=== PATIENT | male | born 1945 ===

== ENCOUNTER 2019-01-21 10:52 | Emergency (ER) | payer OTHER, SELFPAY ==
[2019-01-21 11:22] LABS: Absolute Lymphocytes (CBC) 0.8 K/uL (0.7-4.9); Absolute Monocytes 0.5 K/uL (0.1-1.3); Absolute Neutrophil 3.3 K/uL (1.8-8.0); Basophils % 0.4 % (0-1.3); Hematocrit 37.2 % (39.6-49.0); MPV 9.1 fL (7.6-11.3); Monocytes % 10.8 % (3.3-12.3); RBC Red Blood Cell Count 3.76 M/uL (4.33-5.43)
[2019-01-21 11:25] LABS: Protime INR 1.36
[2019-01-21 11:40] LABS: ALT/SGPT 8 U/L (12-78); AST/SGOT 7 U/L (15-37); Albumin 2.9 g/dL (3.4-5.0); Alkaline Phosphatase 67 U/L (45-117); BUN Blood Urea Nitrogen 20 mg/dL (7-18); Bicarbonate 30 mmol/L (21-32); Bilirubin Direct 0.2 mg/dL (0-0.2); Bilirubin Total 0.4 mg/dL (0.2-1.0); Glucose Level 83 mg/dL (74-106); Magnesium 2.2 mg/dL (1.8-2.4); NT PRO-BNP 626 pg/mL (<125); Potassium 4.1 mmol/L (3.5-5.1); Protein, Total 6.5 g/dL (6.4-8.2); Sodium Level 147 mmol/L (136-145); Troponin (Emerg Dept Use Only) < 0.02 ng/mL (0.0-0.045)
--- NOTE | 2019-01-21 12:05 | RAD REPORT ---
EXAM DESCRIPTION: CT - CTHCSPWOC - 01/21/2019 11:36 am CLINICAL HISTORY: Fall, head and neck injury COMPARISON: None. TECHNIQUE: Axial 5 mm thick images of the head were obtained. Axial 2 mm thick images of the cervic al spine were obtained with sagittal and coronal reconstruction images generated and reviewed. All CT scans are performed using dose optimization technique as appropriate and may include automated exposure control or mA/KV adjustment according to patient size. FINDINGS: No intracranial hemorrhage, mass, edema or acute intracranial finding. No cortical edema o r sulcal effacement. An acute cortical based infarction is not identifiable. Patient has prominent at rophy and prominent chronic ischemic change. Ventricles are in proportion to the amount of volume los s. Mastoid air cells and paranasal sinuses are clear. No globe or orbit abnormality seen. Cervical bodies are normal in height. There is a mild subluxation of C4 on C5 secondary to facet dege nerative change. C5-6 and C6-7 disc space narrowing present. No fracture or acute finding identifiabl e. Prominent facet degenerative change on the right at C2-3 with mild foraminal encroachment. There i s significant right foraminal encroachment from bony hypertrophy at C3-4 and bilaterally at C4-5. Brigitte y significant left C5-6 and bilateral C6-7 foraminal encroachment. No fracture or acute bony abnormal ity. Central canal detail is inherently limited. No paraspinal mass or hematoma. IMPRESSION: Prominent atrophy and chronic ischemic change with no hemorrhage or acute intracranial f inding. Chronic ischemic change can mask nonhemorrhagic acute CVA. Advanced cervical spine degenerative change as detailed. No acute findings seen.
[2019-01-21] MEDS ORDERED: THIAMINE 200 MG/2 ML INJ ONE (12:25)
[2019-01-21] MEDS ORDERED: NA CHLORIDE 0.9% 1,000 ML ONE (12:25)
[2019-01-21] MEDS ORDERED: TETANUS & DIPHTHERIA TOX,ADULT 0.5 ML VIAL ONE (12:26)
[2019-01-21 12:33] LABS: Urine Blood NEGATIVE (NEG); Urine Glucose NEGATIVE (NEG); Urine Protein NEGATIVE (NEG); Urine Specific Gravity 1.015 (1.005-1.030); Urine pH 7.5 (5.0-7.0)
--- NOTE | 2019-01-21 12:48 | RAD REPORT ---
EXAM DESCRIPTION: RAD - Chest Single View - 01/21/2019 12:09 pm CLINICAL HISTORY: Cough COMPARISON: None. TECHNIQUE: AP portable chest image was obtained 1143 hours . FINDINGS: No focal lung parenchymal process. Mild fibrotic stranding is present. Heart and vasculatu re are normal. No measurable pleural effusion and no pneumothorax. No acute bony abnormality seen. No acute aortic findings suspected. IMPRESSION: No acute cardiopulmonary process.
--- NOTE | 2019-01-21 13:15 | EDPHYS ---
Physician Documentation [facility] Name: Andres Schultz Age: 73 yrs Sex: Male : 1945 Arrival Date: 01/21/2019 Time: 10:53 Bed 5 Private MD: ED Physician Chong Panda HPI: 01/21 11:16 This 73 yrs old Male presents to ER via EMS with complaints of Head jerrod Injury-Adult. 11:16 The patient or guardian reports abrasion, injury, a laceration, 2.5 cm(s). The jerrod complaints affect the right eye and right cheek. Context of injury: The problem was sustained at a bar or nightclub, at a prison or assisted living facility. Onset: The symptoms/episode began/occurred this morning. Associated signs and symptoms: The patient has no apparent associated signs or symptoms. Severity of symptoms: At their worst the symptoms were mild, in the emergency department the symptoms are unchanged. The patient has not experienced similar symptoms in the past. Historical: - Home Meds: 11:03 Protonix Oral [Active]; valproic acid 250 mg Oral cap 2 caps every 8 hours [Active]; ch Seroquel 200 mg Oral tab 1 tab three times a day [Active]; lactulose Oral for prn constipation [Active]; Senokot 8.6 mg Oral tab 2 tabs once daily [Active]; Dulcolax (bisacodyl) 5 mg Oral TbEC 2 tabs once daily [Active]; Zyprexa Oral [Active]; Haldol Oral [Active]; Depakote Oral [Active]; - PMHx: 11:03 COPD; Dementia; Hypertension; psychosis; hx of etoh abuse; Alzheimers; vitamin D def; ch Bipolar disorder; GERD; pain; thrombocytopenia; fall risk/ pt wanders; edema legs; - PSHx: 11:03 Unable to obtain; ch - Immunization history:: Adult Immunizations up to date. - Social history:: Smoking status: Patient/guardian denies using tobacco, Patient/guardian denies using alcohol, street drugs. - Ebola Screening: : Patient negative for fever greater than or equal to 101.5 degrees Fahrenheit, and additional compatible Ebola Virus Disease symptoms Patient denies exposure to infectious person Patient denies travel to an Ebola-affected area in the 21 days before illness onset No symptoms or risks identified at this time. - Family history:: not pertinent. ROS: 11:16 Constitutional: Negative for fever, chills, and weight loss, Eyes: Negative for injury, jerrod pain, redness, and discharge, ENT: Negative for injury, pain, and discharge, Neck: Negative for injury, pain, and swelling, Cardiovascular: Negative for chest pain, palpitations, and edema, Respiratory: Negative for shortness of breath, cough, wheezing, and pleuritic chest pain, Abdomen/GI: Negative for abdominal pain, nausea, vomiting, diarrhea, and constipation, Back: Negative for injury and pain, : Negative for injury, bleeding, discharge, and swelling, MS/Extremity: Negative for injury and deformity, Psych: Negative for depression, anxiety, suicide ideation, homicidal ideation, and hallucinations, Allergy/Immunology: Negative for hives, rash, and allergies, Endocrine: Negative for neck swelling, polydipsia, polyuria, polyphagia, and marked weight changes. 11:16 Skin: Positive for abrasion(s), laceration(s), of the right cheek and right eye. 11:16 Neuro: Positive for altered mental status, dementia. Exam: 11:16 Constitutional: This is a well developed, well nourished patient who is awake, alert, jerrod and in no acute distress. Eyes: Pupils equal round and reactive to light, extra-ocular motions intact. Lids and lashes normal. Conjunctiva and sclera are non-icteric and not injected. Cornea within normal limits. Periorbital areas with no swelling, redness, or edema. ENT: Nares patent. No nasal discharge, no septal abnormalities noted. Tympanic membranes are normal and external auditory canals are clear. Oropharynx with no redness, swelling, or masses, exudates, or evidence of obstruction, uvula midline. Mucous membranes moist. Neck: Trachea midline, no thyromegaly or masses palpated, and no cervical lymphadenopathy. Supple, full range of motion without nuchal rigidity, or vertebral point tenderness. No Meningismus. Chest/axilla: Normal chest wall appearance and motion. Nontender with no deformity. No lesions are appreciated. Cardiovascular: Regular rate and rhythm with a normal S1 and S2. No gallops, murmurs, or rubs. Normal PMI, no JVD. No pulse deficits. Respiratory: Lungs have equal breath sounds bilaterally, clear to auscultation and percussion. No rales, rhonchi or wheezes noted. No increased work of breathing, no retractions or nasal flaring. Abdomen/GI: Soft, non-tender, with normal bowel sounds. No distension or tympany. No guarding or rebound. No evidence of tenderness throughout. Back: No spinal tenderness. No costovertebral tenderness. Full range of motion. Skin: Warm, dry with normal turgor. Normal color with no rashes, no lesions, and no evidence of cellulitis. MS/ Extremity: Pulses equal, no cyanosis. Neurovascular intact. Full, normal range of motion. Neuro: Awake and alert, GCS 15, oriented to person, place, time, and situation. Cranial nerves II-XII grossly intact. Motor strength 5/5 in all extremities. Sensory grossly intact. Cerebellar exam normal. Normal gait. Psych: Awake, alert, with orientation to person, place and time. Behavior, mood, and affect are within normal limits. 11:16 Head/face: Noted is a laceration(s), that is superficial, that is jagged, 2.5 cm(s). Vital Signs: 11:03 BP 159 / 95; Pulse 84; Resp 16; Pulse Ox 99% on R/A; Weight 81.65 kg; Height 5 ft. 10 in. (177.80 cm); Pain 0/10; 12:30 BP 166 / 93; Pulse 73; Resp 21; Pulse Ox 97% on R/A; aj1 13:34 BP 160 / 93; Pulse 73; Resp 16; Pulse Ox 99% ; sv 11:03 Body Mass Index 25.83 (81.65 kg, 177.80 cm) 11:03 height and weight approximated Ravia Coma Score: 10:53 Eye Response: spontaneous(4). Verbal Response: confused(4). Motor Response: obeys commands(6). Total: 14. 11:16 Eye Response: spontaneous(4). Verbal Response: confused(4). Motor Response: localizes [facility] pain(5). Total: 13. MDM: 10:56 Patient medically screened. [facility] 11:18 Data reviewed: vital signs, nurses notes, lab test result(s), EKG, radiologic studies. [facility] 01/21 11:06 Order name: Basic Metabolic Panel; Complete Time: 13:11 [facility] 01/21 11:06 Order name: CBC with Diff; Complete Time: 11:29 [facility] 01/21 11:06 Order name: LFT's; Complete Time: 13:11 [facility] 01/21 11:06 Order name: Magnesium; Complete Time: 13:11 [facility] 01/21 11:06 Order name: NT PRO-BNP; Complete Time: 13:11 [facility] 01/21 11:06 Order name: PT-INR; Complete Time: 11:29 [facility] 01/21 11:06 Order name: Troponin (emerg Dept Use Only); Complete Time: 13:11 [facility] 01/21 11:06 Order name: XRAY Chest (1 view); Complete Time: 13:11 [facility] 01/21 11:06 Order name: Urine Culture [facility] 01/21 11:06 Order name: CT Head C Spine; Complete Time: 13:11 [facility] 01/21 12:28 Order name: Urine Dipstick--Ancillary (enter results); Complete Time: 13:11 01/21 13:16 Order name: Depakote [facility] 01/21 11:06 Order name: EKG; Complete Time: 11:07 [facility] 01/21 11:06 Order name: Cardiac monitoring; Complete Time: 11: [facility] 01/21 11:06 Order name: EKG - Nurse/Tech; Complete Time: 11: [facility] 01/21 11:06 Order name: IV Saline Lock; Complete Time: 11:32 [facility] 01/21 11:06 Order name: Labs collected and sent; Complete Time: 11:32 [facility] 01/21 11:06 Order name: O2 Per Protocol; Complete Time: 11: [facility] 01/21 11:06 Order name: O2 Sat Monitoring; Complete Time: 11: [facility] 01/21 11:06 Order name: Urine Dipstick-Ancillary (obtain specimen); Complete Time: 12:31 [facility] 01/21 11:06 Order name: Ice pack; Complete Time: 11:32 [facility] Administered Medications: 12:39 Drug: NS 0.9% 1000 ml Route: IV; Rate: 125 ml/hr; Site: right forearm; 12:41 Drug: Tetanus-Diphtheria Toxoid Adult 0.5 ml {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 Exp: aj1 12/29/2020. Lot #: [id number]. } Route: IM; Site: right deltoid; 12:41 Drug: Neosporin Ointment 1 application Route: Topical; Site: affected area; aj1 12:41 Drug: Thiamine 100 mg Route: IV; Rate: bolus; Site: right antecubital; aj1 Disposition: 01/21/19 13:14 Discharged to Home. Impression: Laceration without foreign body of other part of head - head, Fall due to bumping against object, Dementia in other diseases classified elsewhere. - Condition is Stable. - Discharge Instructions: Dementia, Fall Prevention in the Home, Facial Laceration, Facial Laceration, [id number], Fall Prevention in the Home, Wrmz-js-[id number], Fall Prevention in Hospitals, Adult, Dementia, Puwe-in-Pxyi. - Medication Reconciliation Form, Thank You Letter, Antibiotic Education, Prescription Opioid Use form. - Follow up: Private Physician; When: 2 - 3 days; Reason: Recheck today's complaints, Continuance of care, Re-evaluation by your physician. - Problem is new. - Symptoms have improved. Signatures: Dispatcher [employer] EDMariama Mcdaniels RN RN ch Johnson, Angela, RN RN aj1 Chong Panda MD MD cha Corrections: (The following items were deleted from the chart) 14:50 13:14 01/21/2019 13:14 Discharged to Home. Impression: Laceration without foreign body aj1 of other part of head - head; Fall due to bumping against object; Dementia in other diseases classified elsewhere. Condition is Stable. Discharge Instructions: Dementia, Facial Laceration, Facial Laceration, Rgff-[id number]-Vgdr, Dementia, [id number]-[id number], Fall Prevention in the Home, Fall Prevention in the Home, Gcgf-[id number], Fall Prevention in Hospitals, Adult. Forms are Medication Reconciliation Form, Thank You Letter, Antibiotic Education, Prescription Opioid Use. Follow up: Private Physician; When: 2 - 3 days; Reason: Recheck today's complaints, Continuance of care, Re-evaluation by your physician. Problem is new. Symptoms have improved. jerrod
--- NOTE | 2019-01-21 13:15 | ER ---
Nurse's Notes [facility] Name: Andres Schultz Age: 73 yrs Sex: Male : 1945 Arrival Date: 01/21/2019 Time: 10:53 Bed 5 Private MD: Diagnosis: Laceration without foreign body of other part of head-head;Fall due to bumping against object;Dementia in other diseases classified elsewhere Presentation: 01/21 10:53 Presenting complaint: EMS states: Pt from [facility], pt found in bed with 3 cm lac ch to R side of face, cheekbone. brusing noted to area. unknown time of fall or LOC. Transition of care: patient was received from another setting of care (long-term care facility), [facility]. Mechanism of Injury: resulted from unknown suspected fall. Onset of symptoms was January 21, 2019. Risk Assessment: Do you want to hurt yourself or someone else? Unable to obtain. Initial Sepsis Screen: Does the patient meet any 2 criteria? No. Patient's initial sepsis screen is negative. Does the patient have a suspected source of infection? No. Patient's initial sepsis screen is negative. Care prior to arrival: 89 bgl. 10:53 Method Of Arrival: EMS: [facility] 10:53 Acuity: IZABELA 3 ch Triage Assessment: 11:03 General: Appears in no apparent distress. comfortable, Behavior is calm, cooperative, ch appropriate for age. Pain: Denies pain. Neuro: Level of Consciousness is awake, alert, obeys commands, confused, Oriented to person, Rn Lvn are equal bilaterally Speech is normal, Facial symmetry appears normal, Facial symmetry: tongue is midline, Pupils are PERRLA, pt has laceration to R cheek/cheek bone, with bruising under eye. . 14:00 Neuro: Reports. aj1 Historical: - Home Meds: 11:03 Protonix Oral [Active]; valproic acid 250 mg Oral cap 2 caps every 8 hours [Active]; ch Seroquel 200 mg Oral tab 1 tab three times a day [Active]; lactulose Oral for prn constipation [Active]; Senokot 8.6 mg Oral tab 2 tabs once daily [Active]; Dulcolax (bisacodyl) 5 mg Oral TbEC 2 tabs once daily [Active]; Zyprexa Oral [Active]; Haldol Oral [Active]; Depakote Oral [Active]; - PMHx: 11:03 COPD; Dementia; Hypertension; psychosis; hx of etoh abuse; Alzheimers; vitamin D def; ch Bipolar disorder; GERD; pain; thrombocytopenia; fall risk/ pt wanders; edema legs; - PSHx: 11:03 Unable to obtain; - Immunization history:: Adult Immunizations up to date. - Social history:: Smoking status: Patient/guardian denies using tobacco, Patient/guardian denies using alcohol, street drugs. - Ebola Screening: : Patient negative for fever greater than or equal to 101.5 degrees Fahrenheit, and additional compatible Ebola Virus Disease symptoms Patient denies exposure to infectious person Patient denies travel to an Ebola-affected area in the 21 days before illness onset No symptoms or risks identified at this time. - Family history:: not pertinent. Screenin:30 Abuse screen: Denies threats or abuse. Denies injuries from another. Nutritional aj1 screening: No deficits noted. Tuberculosis screening: No symptoms or risk factors identified. 13:59 Fall Risk Fall in past 12 months (25 points). Secondary diagnosis (15 points) aj1 Alzheimer's, dementia, No IV (0 pts). Ambulatory Aid- None/Bed Rest/Nurse Assist (0 pts). Gait- Normal/Bed Rest/Wheelchair (0 pts) Mental Status- Overestimates/Forgets Limitations (15 pts.). Total Pulido Fall Scale indicates High Risk Score (45 or more points). Frequent Obs/Assessments Occuring. Assessment: 11:30 General: Appears in no apparent distress. comfortable, Behavior is calm, cooperative, aj1 appropriate for age. Pain: Denies pain. Neuro: Level of Consciousness is awake, alert, obeys commands, Oriented to person, Rn Lvn are equal bilaterally Moves all extremities. Full function Speech is normal. Cardiovascular: Heart tones S1 S2 present Patient's skin is warm and dry. Rhythm is sinus rhythm. Respiratory: Airway is patent Respiratory effort is even, unlabored, Respiratory pattern is regular, symmetrical. GI: No signs and/or symptoms were reported involving the gastrointestinal system. : No signs and/or symptoms were reported regarding the genitourinary system. EENT: No signs and/or symptoms were reported regarding the EENT system. Derm: Skin is pink, warm \T\ dry. Musculoskeletal: No signs and/or symptoms reported regarding the musculoskeletal system. Circulation, motion, and sensation intact. Injury Description: Laceration sustained to right [facility] is 2.6 to 7.5 cm long, a small amount of bleeding noted at this time. 12:30 Reassessment: Patient appears in no apparent distress at this time. No changes from aj1 previously documented assessment. Patient and/or family updated on plan of care and expected duration. Pain level reassessed. 13:30 Reassessment: Patient appears in no apparent distress at this time. No changes from aj1 previously documented assessment. Patient and/or family updated on plan of care and expected duration. Pain level reassessed. Vital Signs: 11:03 BP 159 / 95; Pulse 84; Resp 16; Pulse Ox 99% on R/A; Weight 81.65 kg; Height 5 ft. 10 ch in. (177.80 cm); Pain 0/10; 12:30 BP 166 / 93; Pulse 73; Resp 21; Pulse Ox 97% on R/A; aj1 13:34 BP 160 / 93; Pulse 73; Resp 16; Pulse Ox 99% ; sv 11:03 Body Mass Index 25.83 (81.65 kg, 177.80 cm) 11:03 height and weight approximated Silvia Coma Score: 10:53 Eye Response: spontaneous(4). Verbal Response: confused(4). Motor Response: obeys commands(6). Total: 14. 11:16 Eye Response: spontaneous(4). Verbal Response: confused(4). Motor Response: localizes [facility] pain(5). Total: 13. ED Course: 10:53 Patient arrived in ED. 10:55 Triage completed. 10:56 Chong Panda MD is Attending Physician. [facility] 11:03 Arm band placed on left wrist. Patient placed in an exam room, on a stretcher, on air sampling and monitoring, on pulse oximetry. 11:08 Natalee Webster, RN is Primary Nurse. aj1 11:30 Patient has correct armband on for positive identification. Placed in gown. Bed in low aj1 position. Call light in reach. Side rails up X2. air sampling and monitoring on. Pulse ox on. NIBP on. 11:30 No provider procedures requiring assistance completed. Inserted saline lock: 22 gauge aj1 in right forearm, using aseptic technique. Blood collected. 11:37 CT Head C Spine In Process Unspecified. EDMS 12:09 XRAY Chest (1 view) In Process Unspecified. EDMS 14:08 IV discontinued, intact, bleeding controlled, No redness/swelling at site. Pressure aj1 dressing applied. Administered Medications: 12:39 Drug: NS 0.9% 1000 ml Route: IV; Rate: 125 ml/hr; Site: right forearm; aj1 12:41 Drug: Tetanus-Diphtheria Toxoid Adult 0.5 ml {[employer] Bacon: Departing. Exp: aj1 12/29/2020. Lot #: [id number]. } Route: IM; Site: right deltoid; 12:41 Drug: Neosporin Ointment 1 application Route: Topical; Site: affected area; aj1 12:41 Drug: Thiamine 100 mg Route: IV; Rate: bolus; Site: right antecubital; aj1 Outcome: 13:14 Discharge ordered by MD. elder 13:59 Discharged to retirement. Report called to [facility] to [facility] Transfer form sv completed. 13:59 Condition: stable 13:59 Discharge instructions given to retirement, Instructed on discharge instructions, follow up and referral plans. Demonstrated understanding of instructions, follow-up care. 14:50 Patient left the ED. aj1 Signatures: Dispatcher [employer] Mariama Falcon, RN RN Natalee Conteh RN RN aj1 Monik Lopez, Chong Farrell RN, MD MD cha Corrections: (The following items were deleted from the chart) 13:59 12:30 Reassessment: Patient appears in no apparent distress at this time. No changes aj1 from previously documented assessment. Patient and/or family updated on plan of care and expected duration. Pain level reassessed. Patient is alert, oriented x 3, equal unlabored respirations, skin warm/dry/pink. aj1
--- NOTE | 2019-01-22 05:56 | EKG ---
Test Date: 2019-01-21 Test Time: 11:04:40 Chain Dyer: MEASUREMENT RESULTS: Intervals: Rate: 74 NH: 148 QRSD: 92 QT: 392 QTc: 435 [place]: P: 69 NH: 148 QRS: 80 T: 71 INTERPRETIVE STATEMENTS: Normal sinus rhythm Normal ECG No previous ECG available for comparison Electronically Signed On 01-22-19 05:54:53 CDT by Tahir Granado
== END 2019-01-21 14:50 | disposition home or self-care (01) ==
LOC: ER 10:52
DX: S01.81XA Laceration without foreign body of other part of head, initial encounter (principal); G30.9 Alzheimer's disease, unspecified; F02.80 Dementia in other diseases classified elsewhere, unspecified severity, without behavioral disturbance, psychotic disturbance, mood disturbance, and anxiety; W18.00XA Striking against unspecified object with subsequent fall, initial encounter; Y93.9 Activity, unspecified; Y92.89 Other specified places as the place of occurrence of the external cause; Z23 Encounter for immunization; I10 Essential (primary) hypertension; J44.9 Chronic obstructive pulmonary disease, unspecified; F31.9 Bipolar disorder, unspecified
CPT/HCPCS: 93005; 87088; 85025; 80048; 36415; 83735; 85610; 80076; 80164; 81003; 84484; 83880; 70450; 72125; 71045; 90714; 96374; 99284; J3411; J7030; 87086

== ENCOUNTER 2019-05-16 13:35 | Observation (INO) | payer OTHER ==
--- OUTSIDE RECORDS SUMMARY | 2019-05-16 13:49 | XMS REPORT | Clinical Summary ---
:1945 Author Organization [employer] [employer] Address [address] [place] [address] Care Team Providers Name Role Phone Provider, Unknown Primary Care Provider Unavailable Allergies No Known Allergies Medications Medication Sig Dispensed Refills Start Date End Date Status donepezil (ARICEPT) 10 Take 5 mg by mouth 0 Active MG tablet nightly. albuterol (ACCUNEB) Take 1 ampule by 0 Active 1.25 mg/3 mL nebulizer nebulization every solution 4 (four) hours as needed for wheezing. nicotine (NICODERM CQ) Place 1 patch on 0 Active 21 mg/24 hr the skin daily as needed. divalproex (DEPAKOTE) Take 250 mg by 0 Active 250 MG EC tablet mouth 3 (three) times a day. LORAZepam (ATIVAN) 0.5 Take 0.5 mg by 0 Active MG tablet mouth 3 (three) times a day. QUEtiapine (SEROquel) Take 150 mg by 0 Active 100 MG tablet mouth 3 (three) times a day. traZODone (DESYREL) Take 150 mg by 0 Active 150 MG tablet mouth nightly. acetaminophen Insert 650 mg into 0 Active (TYLENOL) 650 MG the rectum every 4 suppository (four) hours as needed for mild pain. acetaminophen Take 650 mg by 0 Active (TYLENOL) 325 MG mouth every 6 (six) tablet hours as needed for fever. chlordiazePOXIDE Take 50 mg by mouth 0 Active (LIBRIUM) 25 MG every 6 (six) hours capsule as needed for anxiety. ibuprofen Take 600 mg by 0 Active (ADVIL,MOTRIN) 600 MG mouth every 6 (six) tablet hours as needed for mild pain. traMADol (ULTRAM) 50 Take 50 mg by mouth 0 Active mg tablet every 6 (six) hours as needed for moderate pain. traZODone (DESYREL) 50 Take 50 mg by mouth 0 Active MG tablet nightly as needed for sleep. potassium chloride Take 40 mEq by 0 Active (KLOR-CON) 20 mEq mouth every 12 packet (twelve) hours as needed. famotidine (PEPCID) 20 Take 20 mg by mouth 0 Active MG tablet 2 (two) times a day. docusate sodium Take 100 mg by 0 Active (COLACE) 100 MG mouth every 12 capsule (twelve) hours as needed for constipation. ondansetron (ZOFRAN) 4 Take 4 mg by mouth 0 Active MG tablet every 6 (six) hours as needed for nausea or vomiting. thiamine mononitrate, Take 100 mg by 0 Active vit B1, (B-1) 100 mg mouth 2 (two) times tablet a day. haloperidol (HALDOL) 5 Take 5 mg by mouth 0 Active MG tablet 4 (four) times a day. MEDICATION IS GIVEN IM, PRN LORAZepam (ATIVAN) 2 Take 2 mg by mouth 0 Active MG tablet every 4 (four) hours as needed for anxiety. PRN IM ADMINISTRATION OLANZapine (ZYPREXA) 0 04/20/2018 Active 10 MG tablet haloperidol (HALDOL) 0 04/20/2018 Active 10 MG tablet divalproex (DEPAKOTE) 0 04/20/2018 Active 500 MG EC tablet Active Problems Not on file Social History Tobacco Use Types Packs/Day Years Used Date Never Smoker Smokeless Tobacco: Never Used Alcohol Use Drinks/Week oz/Week Comments No Sex Assigned at Date Recorded Not on file Job Start Date Occupation Industry Not on file Not on file Not on file Travel History Travel Start Travel End No recent travel history available. Last Filed Vital Signs Not on file Plan of Treatment Health Maintenance Due Date Last Done Comments COLONOSCOPY SCREENING 02/05/1996 SHINGLES VACCINES (#1) 02/05/1996 65+ PNEUMOCOCCAL VACCINE (1 of 2 - PCV13) 2011 INFLUENZA VACCINE 06/15/2019 Results Not on fileafter 05/15/2018 Advance Directives Patient has advance care planning documents on file. For more information, please contact:Pablo Contreras[address] [place] [address]
--- OUTSIDE RECORDS SUMMARY | 2019-05-16 13:49 | XMS REPORT ---
:1945 Author Organization [facility] Address [address] [place] [address] [address] [address] Care Team Providers Name Role Phone PEBBLES JACKSON Unavailable Unavailable Problems This patient has no known problems. Allergies, Adverse Reactions, Alerts This patient has no known allergies or adverse reactions. Medications This patient has no known medications. Results Test Description Test Time Test Comments Text Results Atomic Results Result Comments MRI BRAIN WO [facility] [address] [address] Patient Name: CYNDEE CRANE MR #: [id number] : 1945 Age/Sex: 72/M Req #: [id number] Adm Physician: PEBBLES JACKSON MD Ordered by: PEBBLES JACKSON MD Report #: [id number] Location: [facility] Room/Bed: [facility] Procedure: [id number] MRI/MRI BRAIN WO Exam Date: Exam Time: REPORT STATUS: Signed EXAMINATION: MRI of the brain without contrast. HISTORY: Alcohol withdrawal, altered mental status, memory loss COMPARISON: Head CT on 01/14/2018 TECHNIQUE: Sagittal T2; axial DWI, T2, FLAIR, T1-IR, T2 gradient echo; coronal FLAIR. IMAGE QUALITY: Motion artifact limits evaluation of some of the sequences.. FINDINGS: Parenchyma: 1. Few scattered and mildly confluent periventricular white matter T2 and FLAIR hyperintense foci, most likely nonspecific chronic microvascular ischemic changes 2. No mass, hemorrhage, acute or chronic infarcts. Skull: Unremarkable. Vessels: Expected flow voids present in the major arteries and dural sinuses. Extra-axial spaces: No abnormal signal intensity or mass effect. Brain volume: Mild generalized brain volume loss. Ventricles: No hydrocephalus or displacement. Mildly enlarged, likely ex vacuo. Foramen magnum: Unremarkable. Sella: Unremarkable. Paranasal / mastoid sinuses: No significant inflammatory disease. IMPRESSION: 1. Mild chronic microvascular ischemic changes. 2. Mild generalized brain volume loss. 3. Mild ventriculomegaly as detailed above. Signed by: Dr. Tamera Zimmerman M.D. on 12/20/2017 5:16 PM Dictated By: TAMERA ZIMMERMAN MD 15 Transcribed By: NELLI on 12/20/171715 COPY TO: PEBBLES JACKSON MD CT CERVICAL SPINE [address] [address] Patient Name: CYNDEE CRANE MR #: [id number] : 1945 Age/Sex: 72/M Req #: [id number] Adm Physician: Ordered by: JENA ZARAGOZA MD Report #: [id number] Location: ER Room/Bed: Procedure: [id number] CT/CT CERVICAL SPINE WO Exam Date: 12/18/17 Exam Time: 011 REPORT STATUS: Signed Examination: CT CERVICAL SPINE WITHOUT CONTRAST HISTORY:Neck pain. Fall. COMPARISON:None. TECHNIQUE: Multidetector helical axial images were obtained without contrast from the foramen magnum to T1. Coronal and sagittal reformatted images were done. Bone and soft tissue windows were evaluated. FINDINGS: Alignment:Normal alignment with straightening of normal lordosis. Grade I anterolisthesis of C4 on C5. Vertebrae: Normal height and density. No acute fracture, infection or neoplasm. Disc space heights: Moderately narrowed at C5-C6 and C6-C7. Caliber of spinal canal: Developmentally normal. Posterior fossa and craniocervical junction: Foramen magnum patent. No Chiari 1 malformation. Soft tissues: No abnormality. Degenerative changes: Severe right neural foraminal narrowing at C3-C4, moderate right foraminal narrowing at C4-C5, and severe on the left at C5-C6 and C6-C7 due to uncovertebral and facet arthropathy. No disc bulge/ herniation or canal stenosis. Additional findings: None. IMPRESSION: No acute abnormalities. Signed by: Dr. Ivana Brand M.D. on 12/18/2017 1:57 AM Dictated By: IVANA GALLO MD 6 Transcribed By: NELLI on 12/18/17156 COPY TO: JENA ZARAGOZA MD CT ABDOMEN/PELVIS [place] [address] Patient Name: CYNDEE CRANE MR #: [id number] : 1945 Age/Sex: 72/M Req #: [id number] Adm Physician: Ordered by: JENA ZARAGOZA MD Report #: [id number] Location: ER Room/Bed: Procedure: [id number] CT/CT ABDOMEN/PELVIS WO Exam Date: 12/18/17 Exam Time: 0119 REPORT STATUS: Signed EXAM: CT ABDOMEN AND PELVIS without IV CONTRAST ORDER DATE: 12/18/2017 12:03 AM Time stamp on Exam: 0125 hours INDICATION: Distention/vomiting COMPARISON: None TECHNIQUE: The abdomen and pelvis were scanned using a multidetector helical scanner. Coronal and sagittal reformations were obtained. Routine protocol performed. IV Contrast: None Oral Contrast: Gastrografin CTDIvol has been reviewed. It is below the limits set by the Radiation Protocol Committee (RPC). FINDINGS: LOWER THORAX: No consolidations LIVER: Hepatic steatosis and hepatomegaly BILIARY: Normal gallbladder. No ductal dilation. SPLEEN: No masses PANCREAS: Fatty replacement of the pancreas ADRENALS: No nodules RIGHT KIDNEY: No nephroureterolithiasis or hydronephrosis. Nonspecific perinephric fat stranding. LEFT KIDNEY: No nephroureterolithiasis or hydronephrosis. Nonspecific perinephric fat stranding. GI TRACT: No wall thickening or obstruction. Normal appendix. VESSELS: Moderate atherosclerotic changes of the abdominal aorta and branches. Mild aneurysmal dilation of the infrarenal abdominal aorta to 3.4 cm. PERITONEUM/RETROPERITONEUM: No free air or fluid LYMPH NODES: No lymphadenopathy REPRODUCTIVE ORGANS: Normal BLADDER: Normal SOFT TISSUES: Normal BONES: No suspicious bone lesions. IMPRESSION: No acute findings. No bowel obstruction or appendicitis. Hepatomegaly and hepatic steatosis. Nonspecific bilateral perinephric fat stranding, possibly related to medical renal disease. Signed by: Dr. Xiang Joy M.D. on 12/18/2017 1:56 AM Dictated By: XIANG JOY MD 5 Transcribed By: NELLI on 12/18/17155 COPY TO: JENA ZARAGOZA MD CHEST 2 VIEWS [place] [address] Patient Name: CYNDEE CRANE MR #: [id number] : 1945 Age/Sex: 72/M Req #: [id number] Adm Physician: Ordered by: JENA ZARAGOZA MD Report #: [id number] Location: ER Room/Bed: Procedure: [id number] DX/CHEST 2 VIEWS Exam Date: 12/17/17 Exam Time: 2009 REPORT STATUS: Signed EXAMINATION: CHEST 2 VIEWS INDICATION: Fall. COMPARISON: None FINDINGS: TUBES and LINES: None. LUNGS: Lungs are well inflated. Lungs are clear. There is no evidence of pneumonia or pulmonary edema. PLEURA: No pleural effusion or pneumothorax. HEART AND MEDIASTINUM: The cardiomediastinal silhouette is unremarkable. BONES AND SOFT TISSUES: No acute osseous lesion. Soft tissues are unremarkable. UPPER ABDOMEN: No free air under the diaphragm. IMPRESSION: No acute thoracic abnormality. Signed by: Dr. Missael Garcia M.D. on 12/17/2017 8:45 PM Dictated By: FELECIA GARCIA MD, MD 44 Transcribed By: NELLI on 12/17/172044 COPY TO: JENA ZARAGOZA MD CT BRAIN WO [place] [address] Patient Name: CYNDEE CRANE MR #: [id number] : 1945 Age/Sex: 72/M Req #: [id number] Adm Physician: Ordered by: JENA ZARAGOZA MD Report #: [id number] Location: ER Room/Bed: Procedure: [id number] CT/CT BRAIN WO Exam Date: Exam Time: REPORT STATUS: Signed Examination: CT BRAIN WITHOUT CONTRAST History:Fall; head injury. Comparison studies:None Technique: Axial images were obtained from the skull base to the vertex. Coronal and sagittal images reconstructed from the axial data. Intravenous contrast: None Findings: Scalp: No abnormalities. Bones: No fractures, blastic or lytic lesions. Brain sulci: Mild volume loss for age. Ventricles: No hydrocephalus. Extra-axial space: No abnormalities. Parenchyma: There are mild confluent areas of hypoattenuation in the periventricular and subcortical white matter, nonspecific. No masses, hemorrhage, or acute cortical based vascular insults. Sellar/suprasellar region: No abnormalities. Craniocervical junction: Patent foramen magnum. No Chiari one malformation. Incidental findings: Atherosclerotic calcification of the cavernous and supraclinoid internal carotid and V4 segments of the bilateral vertebral arteries. Impression: 1. No acute intracranial abnormalities. 2. Mild chronic microvascular ischemic change and volume loss. Signed by: Dr. Ivana Brand M.D. on 12/17/2017 9:19 PM Dictated By: IVANA GALLO MD 18 Transcribed By: NELLI on 12/17/172118 COPY TO: JENA ZARAGOZA MD
--- NOTE | 2019-05-16 14:15 | RAD REPORT ---
EXAM DESCRIPTION: CT - Head Brain Wo Cont - 05/16/2019 2:06 pm CLINICAL HISTORY: APHASIA Headache, drowsiness COMPARISON: Head C Spine Mpr Wo Con dated 01/21/2019 TECHNIQUE: All CT scans are performed using dose optimization technique as appropriate and may inclu de automated exposure control or mA/KV adjustment according to patient size. FINDINGS: No intracranial hemorrhage, hydrocephalus or extra-axial fluid collection.Advanced general ized brain atrophy is present with mild periventricular and deep white matter chronic microvascular i schemic changes.No areas of brain edema or evidence of midline shift. The paranasal sinuses and mastoids are clear. The calvarium is intact. Vertebral arteries are calcifi ed. IMPRESSION: No acute intracranial abnormality.
--- NOTE | 2019-05-16 14:27 | RAD REPORT ---
EXAM DESCRIPTION: RAD - Chest Single View - 05/16/2019 2:17 pm CLINICAL HISTORY: CONGESTION Chest pain. COMPARISON: Chest Single View dated 01/21/2019 FINDINGS: Portable technique limits examination quality. The lungs are grossly clear. The heart is normal in size. No displaced fractures. IMPRESSION: No acute intrathoracic process suspected.
[2019-05-16 14:46] LABS: Absolute Lymphocytes (CBC) 0.6 K/uL (0.7-4.9); Basophils % 0.2 % (0-1.3); Eosinophils % 1.3 % (0-4.4); Hematocrit 38.7 % (39.6-49.0); Lymphocytes % 11.3 % (15.3-44.8); MPV 7.5 fL (7.6-11.3); Monocytes % 13.3 % (3.3-12.3); RBC Red Blood Cell Count 4.04 M/uL (4.33-5.43)
[2019-05-16 14:51] LABS: Protime INR 1.35
[2019-05-16] MEDS ORDERED: NA CHLORIDE 0.9% 1,000 ML ONE ×2 (14:53→15:23)
[2019-05-16 15:08] LABS: ALT/SGPT 10 U/L (12-78); AST/SGOT 9 U/L (15-37); Albumin 2.7 g/dL (3.4-5.0); Alkaline Phosphatase 64 U/L (45-117); BUN Blood Urea Nitrogen 25 mg/dL (7-18); Bicarbonate 31 mmol/L (21-32); Bilirubin Direct 0.1 mg/dL (0-0.2); Bilirubin Total 0.3 mg/dL (0.2-1.0); CKMB Creatine Kinase MB 1.2 ng/mL (0.3-3.6); Creatine Phosphokinase 38 U/L (39-308); Glucose Level 114 mg/dL (74-106); Lipase 32 U/L (73-393); Potassium 4.3 mmol/L (3.5-5.1); Sodium Level 142 mmol/L (136-145); Troponin (Emerg Dept Use Only) < 0.02 ng/mL (0.0-0.045)
--- NOTE | 2019-05-16 17:36 | ER ---
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 Transition of care: patient was received from another setting of care (long-term care facility). Onset of symptoms was May 16, 2019. Risk Assessment: Do you want to hurt yourself or someone else? Patient reports no desire to harm self or others. Initial Sepsis Screen: Does the patient meet any 2 criteria? No. Patient's initial sepsis screen is negative. Does the patient have a suspected source of infection? No. Patient's initial sepsis screen is negative. Care prior to arrival: None. 13:40 Method Of Arrival: EMS 13:40 Acuity: IZABELA 3 hj Triage Assessment: 13:46 General: Appears in no apparent distress. uncomfortable, Behavior is calm, cooperative, hj appropriate for age. Pain: Denies pain. Neuro: Level of Consciousness is confused. Historical: - Allergies: 13:46 No Known Allergies; hj - Home Meds: 13:46 Depakote Oral [Active]; Dulcolax (bisacodyl) 5 mg Oral TbEC 2 tabs once daily [Active]; hj Haldol Oral [Active]; Lactulose Oral for prn constipation [Active]; Protonix Oral [Active]; Senokot 8.6 mg Oral tab 2 tabs once daily [Active]; Seroquel 200 mg Oral tab 1 tab three times a day [Active]; valproic acid 250 mg Oral cap 2 caps every 8 hours [Active]; Zyprexa Oral [Active]; - PMHx: 13:46 Alzheimers; Bipolar disorder; COPD; Dementia; edema legs; fall risk/ pt wanders; GERD; hj hx of etoh abuse; Hypertension; Pain; psychosis; vitamin D def; thrombocytopenia; - PSHx: 13:46 Unable to obtain; hj - Immunization history:: Adult Immunizations up to date. - Social history:: Smoking status: Patient/guardian denies using tobacco, Patient/guardian denies using alcohol, Patient/guardian denies using street drugs, The patient lives in an assisted living center. - Ebola Screening: : Patient negative for fever greater than or equal to 101.5 degrees Fahrenheit, and additional compatible Ebola Virus Disease symptoms Patient denies exposure to infectious person Patient denies travel to an Ebola-affected area in the 21 days before illness onset. - Family history:: not pertinent. Screenin:46 Abuse screen: Denies threats or abuse. Denies injuries from another. Nutritional hj screening: No deficits noted. Tuberculosis screening: No symptoms or risk factors identified. Fall Risk None identified. Assessment: 13:46 General: Appears in no apparent distress. uncomfortable, Behavior is calm, hj unresponsive. Pain: Denies pain. Neuro: Level of Consciousness is confused. Cardiovascular: Capillary refill < 3 seconds Patient's skin is warm and dry. Respiratory: Airway is patent Respiratory effort is even, unlabored, Respiratory pattern is regular, symmetrical. GI: No signs and/or symptoms were reported involving the gastrointestinal system. : No signs and/or symptoms were reported regarding the genitourinary system. EENT: Derm: No signs and/or symptoms reported regarding the dermatologic system. Musculoskeletal: No signs and/or symptoms reported regarding the musculoskeletal system. 14:00 Reassessment: wheeled to CT/ XRAY;. hj 14:20 Reassessment: back to room;. hj 14:42 Reassessment: Patient and/or family updated on plan of care and expected duration. Pain hj level reassessed. awaiting results and POC;. 15:30 Reassessment: Patient and/or family updated on plan of care and expected duration. Pain hj level reassessed. Patient denies pain at this time. 16:40 Reassessment: Patient and/or family updated on plan of care and expected duration. Pain hj level reassessed. Patient denies pain at this time. 17:20 Reassessment: Patient and/or family updated on plan of care and expected duration. Pain hj level reassessed. awaiting POC:. 18:04 Reassessment: Patient and/or family updated on plan of care and expected duration. Pain hj level reassessed. awaiting room placement;. 18:35 Reassessment: daughter with power of assistant attorney general called Hannah Bush ([phone]), to update daughter on room assigment;. Vital Signs: 13:48 BP 151 / 90; Pulse 85; Resp 18; Temp 98.1(O); Pulse Ox 98% on R/A; Weight 68.04 kg; hj Height 5 ft. 7 in. (170.18 cm); Pain 0/10; 14:48 BP 149 / 90; Pulse 82; Resp 18; Pulse Ox 100% on R/A; hj 15:30 BP 176 / 98; Pulse 89; Resp 18; Pulse Ox 100% on R/A; hj 16:33 BP 163 / 84; Pulse 84; Resp 18; Pulse Ox 100% on R/A; hj 17:20 BP 181 / 95; Pulse 88; Resp 18; Pulse Ox 100% on R/A; hj 18:05 BP 178 / 92; Pulse 82; Resp 18; Pulse Ox 99% on R/A; hj 18:36 BP 164 / 95; Pulse 82; Resp 18; Temp 97.8(TE); Pulse Ox 99% on R/A; hj 13:48 Body Mass Index 23.49 (68.04 kg, 170.18 cm) hj ED Course: 13:39 Patient arrived in ED. hj 13:43 Triage completed. hj 13:47 Lexus Champagne MD is Attending Physician. ma2 13:47 Arm band placed on right wrist. hj 13:47 Patient has correct armband on for positive identification. Placed in gown. Bed in low hj position. Call light in reach. Side rails up X 1. Adult w/ patient. 13:53 Steven Elliott, AMANDO is Primary Nurse. hj 14:05 CT Head Brain wo Cont In Process Unspecified. EDMS 14:14 X-ray completed. Portable x-ray completed in exam room. Patient tolerated procedure ml well. 14:15 Chest Single View XRAY In Process Unspecified. EDMS 14:28 EKG done, by technical manager chemical plant. reviewed by Lexus Champagne MD. at1 14:30 Inserted saline lock: 22 gauge in left forearm, using aseptic technique. Blood hj collected. 14:30 Initial lab(s) drawn, by me, sent to lab. First set of blood cultures drawn by me. hj 17:34 Gerri Camarillo MD is Hospitalizing Provider. ma2 20:10 No provider procedures requiring assistance completed. Patient did not have IV access bb during this emergency room visit. Administered Medications: 14:30 Drug: NS 0.9% (30 ml/kg) 30 ml/kg Route: IV; Rate: bolus; Site: left forearm; hj 15:40 Drug: NS 0.9% (30 ml/kg) 30 ml/kg Route: IV; Rate: bolus; Site: left forearm; hj 17:36 Follow up: IV Status: Completed infusion; IV Intake: 2000ml hj Intake: 17:36 IV: 2000ml; Total: 2000ml. hj Outcome: 17:35 Decision to Hospitalize by Provider. ma2 20:10 Admitted to Tele accompanied by tech, via stretcher, room 232, Report called to swapna Bowman RN 20:10 Condition: stable 20:10 Instructed on the need for admit. 20:23 Patient left the ED. tl2 Signatures: Dispatcher [employer] EDMS Lissette Grace RN Emerald Sheikh Amanda, video control operator EKG Tat1 Steven Elliott, Jessika Sherman RN, RN RN tl2 Lexus Champagne MD MD ma2
--- NOTE | 2019-05-16 17:37 | EDPHYS ---
Physician Documentation [facility] Name: Andres Schultz Age: 74 yrs Sex: Male : 1945 Arrival Date: 05/16/2019 Time: 13:39 Bed 6 Private MD: ED Physician Lexus Champagne HPI: 05/16 17:32 This 74 yrs old Unknown Male presents to ER via EMS with complaints of Altered Mental ma2 Status. 17:32 The patient presents with confusion, decreased mental status. Onset: The ma2 symptoms/episode began/occurred gradually, 1 day(s) ago. Associated signs and symptoms: Pertinent negatives: ataxia, combativeness, diarrhea, headache. Current symptoms: In the emergency department the patient's symptoms have improved. The patient has experienced similar episodes in the past. Historical: - Allergies: 13:46 No Known Allergies; hj - Home Meds: 13:46 Depakote Oral [Active]; Dulcolax (bisacodyl) 5 mg Oral TbEC 2 tabs once daily [Active]; hj Haldol Oral [Active]; Lactulose Oral for prn constipation [Active]; Protonix Oral [Active]; Senokot 8.6 mg Oral tab 2 tabs once daily [Active]; Seroquel 200 mg Oral tab 1 tab three times a day [Active]; valproic acid 250 mg Oral cap 2 caps every 8 hours [Active]; Zyprexa Oral [Active]; - PMHx: 13:46 Alzheimers; Bipolar disorder; COPD; Dementia; edema legs; fall risk/ pt wanders; GERD; hj hx of etoh abuse; Hypertension; Pain; psychosis; vitamin D def; thrombocytopenia; - PSHx: 13:46 Unable to obtain; hj - Immunization history:: Adult Immunizations up to date. - Social history:: Smoking status: Patient/guardian denies using tobacco, Patient/guardian denies using alcohol, Patient/guardian denies using street drugs, The patient lives in an assisted living center. - Ebola Screening: : Patient negative for fever greater than or equal to 101.5 degrees Fahrenheit, and additional compatible Ebola Virus Disease symptoms Patient denies exposure to infectious person Patient denies travel to an Ebola-affected area in the 21 days before illness onset. - Family history:: not pertinent. ROS: 17:32 Unable to obtain ROS due to altered mental status. ma2 17:35 Constitutional: Negative for fever, chills, and weight loss. ma2 Exam: 17:32 Constitutional: This is a well developed, well nourished patient who is awake, alert, ma2 and in no acute distress. Chest/axilla: Normal chest wall appearance and motion. Nontender with no deformity. No lesions are appreciated. Cardiovascular: Regular rate and rhythm with a normal S1 and S2. No gallops, murmurs, or rubs. Normal PMI, no JVD. No pulse deficits. Respiratory: Lungs have equal breath sounds bilaterally, clear to auscultation and percussion. No rales, rhonchi or wheezes noted. No increased work of breathing, no retractions or nasal flaring. Abdomen/GI: Soft, non-tender, with normal bowel sounds. No distension or tympany. No guarding or rebound. No evidence of tenderness throughout. 17:32 Neuro: moving all extremities, sleepy reusable to verbal communication . Vital Signs: 13:48 BP 151 / 90; Pulse 85; Resp 18; Temp 98.1(O); Pulse Ox 98% on R/A; Weight 68.04 kg; hj Height 5 ft. 7 in. (170.18 cm); Pain 0/10; 14:48 BP 149 / 90; Pulse 82; Resp 18; Pulse Ox 100% on R/A; hj 15:30 BP 176 / 98; Pulse 89; Resp 18; Pulse Ox 100% on R/A; hj 16:33 BP 163 / 84; Pulse 84; Resp 18; Pulse Ox 100% on R/A; hj 17:20 BP 181 / 95; Pulse 88; Resp 18; Pulse Ox 100% on R/A; hj 18:05 BP 178 / 92; Pulse 82; Resp 18; Pulse Ox 99% on R/A; hj 18:36 BP 164 / 95; Pulse 82; Resp 18; Temp 97.8(TE); Pulse Ox 99% on R/A; hj 13:48 Body Mass Index 23.49 (68.04 kg, 170.18 cm) MDM: 13:47 Patient medically screened. ma2 17:32 Differential Diagnosis: hypoglycemia, overdose, volume depletion. Data reviewed: vital ma2 signs, nurses notes. Counseling: I had a detailed discussion with the patient and/or guardian regarding: the historical points, exam findings, and any diagnostic results supporting the discharge/admit diagnosis, the presence of at least one elevated blood pressure reading (>120/80) during this emergency department visit, the need for further work-up and treatment in the hospital. Response to treatment: the patient's symptoms have markedly improved after treatment. ED course: discussed with dr. camarillo . 05/16 13:52 Order name: Basic Metabolic Panel [facility] 05/16 13:52 Order name: Blood Culture Adult (2) 05/16 13:52 Order name: CBC with Diff 2 05/16 13:52 Order name: Ckmb; Complete Time: 15:10 nh2 05/16 13:52 Order name: CPK; Complete Time: 15:10 nh2 05/16 13:52 Order name: Lactate; Complete Time: 15:10 nh2 05/16 13:52 Order name: LFT's; Complete Time: 15:10 nh2 05/16 13:52 Order name: Lipase; Complete Time: 15:10 nh2 05/16 13:52 Order name: Procalcitonin; Complete Time: 15:56 nh2 05/16 13:52 Order name: Protime (+inr); Complete Time: 15:10 ma2 05/16 13:52 Order name: Ptt, Activated; Complete Time: 15:10 nh2 05/16 13:52 Order name: Troponin (emerg Dept Use Only); Complete Time: 15:10 nh2 05/16 13:52 Order name: Urine Microscopic Only [facility] 05/16 13:54 Order name: Basic Metabolic Panel; Complete Time: 15:10 EDMS 05/16 13:52 Order name: CT Head Brain wo Cont; Complete Time: 15:10 ma2 05/16 13:52 Order name: Chest Single View XRAY; Complete Time: 15:10 ma2 05/16 13:52 Order name: Accucheck; Complete Time: 13:53 ma2 05/16 13:52 Order name: Cardiac monitoring; Complete Time: 13:54 ma2 05/16 13:52 Order name: EKG - Nurse/Tech; Complete Time: 14:47 ma2 05/16 13:52 Order name: IV Saline Lock - Large Bore; Complete Time: 14:47 ma2 05/16 13:52 Order name: Labs collected and sent; Complete Time: 14:48 [facility] 05/16 13:52 Order name: O2 Per Protocol; Complete Time: 13:54 [facility] 05/16 13:52 Order name: O2 Sat Monitoring; Complete Time: 13:54 [facility] 05/16 13:54 Order name: Blood Culture [facility] 05/16 13:54 Order name: CBC with Automated Diff [facility] 05/16 15:06 Order name: CBC Smear Scan [facility] 05/16 15:11 Order name: Depakote; Complete Time: 17:29 [facility] 05/16 15:12 Order name: AMMONIA; Complete Time: 17:29 [facility] 05/16 17:45 Order name: EKG Electrocardiogram EDPA Administered Medications: 14:30 Drug: NS 0.9% (30 ml/kg) 30 ml/kg Route: IV; Rate: bolus; Site: left forearm; hj 15:40 Drug: NS 0.9% (30 ml/kg) 30 ml/kg Route: IV; Rate: bolus; Site: left forearm; hj 17:36 Follow up: IV Status: Completed infusion; IV Intake: 2000ml Disposition: 05/16/19 17:35 Hospitalization ordered by Gerri Camarillo for Observation. Preliminary diagnosis is Altered mental status, unspecified. - Bed requested for Telemetry/MedSurg (observation). - Status is Observation. tl2 - Condition is Stable. - Problem is new. - Symptoms are unchanged. UTI on Admission? No Signatures: Dispatcher [employer] EDPA Devonte Benitez em1 Steven Elliott RN RN Jessika Moreno RN RN tl2 Lexus Champagne MD MD ma2 Corrections: (The following items were deleted from the chart) 18:54 17:35 Hospitalization Ordered by Gerri Camarillo MD for Observation. Preliminary diagnosis em1 is Altered mental status, unspecified. Bed requested for Telemetry/MedSurg (observation). Status is Observation. Condition is Stable. Problem is new. Symptoms are unchanged. UTI on Admission? No. ma2 20:23 18:54 05/16/2019 17:35 Hospitalization Ordered by Gerri Camarillo MD for Observation. tl2 Preliminary diagnosis is Altered mental status, unspecified. Bed requested for Telemetry/MedSurg (observation). Status is Observation. Condition is Stable. Problem is new. Symptoms are unchanged. UTI on Admission? No. em1
[2019-05-16 18:32] LABS: Anisocytosis 1+; Blood Morphology Comment NOTED (NOT SEEN); Platelet Estimate DECR; Urine White Blood Cell Casts OK
[2019-05-16] MEDS ORDERED: ALBUTEROL 2.5 MG/3 ML NEB SOL NEB PRN (20:27)
[2019-05-16] MEDS ORDERED: METOPROLOL TAR 50 MG TAB PO ONE (21:36)
[2019-05-16] MEDS: NA CHLORIDE 0.9% 1,000 ML IV SCH (22:32)
[2019-05-17] MEDS: NA CHLORIDE 0.9% 1,000 ML IV SCH ×2 (05:59→10:43)
--- NOTE | 2019-05-17 06:55 | EKG ---
Test Date: 2019-05-16 Test Time: 14:24:18 [employer] Operator: ROLANDO MEASUREMENT RESULTS: Intervals: Rate: 85 MI: 190 QRSD: 90 QT: 388 QTc: 461 [place]: P: 91 MI: 190 QRS: 84 T: 78 INTERPRETIVE STATEMENTS: Normal sinus rhythm Normal ECG Compared to ECG 01/21/2019 11:04:40 No significant changes Electronically Signed On 05-17-19 06:53:21 CDT by Brandyn Brown
[2019-05-17 08:06] LABS: ALT/SGPT 13 U/L (12-78); AST/SGOT 21 U/L (15-37); Absolute Lymphocytes (CBC) 0.6 K/uL (0.7-4.9); Albumin 2.7 g/dL (3.4-5.0); Alkaline Phosphatase 65 U/L (45-117); BUN Blood Urea Nitrogen 17 mg/dL (7-18); Basophils % 0.3 % (0-1.3); Bicarbonate 30 mmol/L (21-32); Bilirubin Total 0.4 mg/dL (0.2-1.0); Eosinophils % 2.2 % (0-4.4); Glucose Level 74 mg/dL (74-106); Hematocrit 38.6 % (39.6-49.0); Lymphocytes % 12.7 % (15.3-44.8); MPV 7.7 fL (7.6-11.3); Monocytes % 13.3 % (3.3-12.3); Phosphorus 2.2 mg/dL (2.5-4.9); Potassium 3.8 mmol/L (3.5-5.1); Sodium Level 142 mmol/L (136-145)
[2019-05-17 08:54] LABS: Blood Morphology Comment NOT SEEN (NOT SEEN); Platelet Estimate DECR
[2019-05-17] MEDS ORDERED: ACETAMINOPHEN 325 MG TABLET PO PRN (09:35)
[2019-05-17] MEDS ORDERED: BISACODYL E.C. 5 MG TAB PO PRN (09:35)
--- NOTE | 2019-05-17 09:57 | P.HP ---
Certification for Inpatient Patient admitted to: Observation With expected LOS: <2 Midnights Patient will require the following post-hospital care: None Practitioner: I am a practitioner with admitting privileges, knowledge of patient current condition, hospital course, and medical plan of care. Services: Services provided to patient in accordance with Admission requirements found in Title 42 Section 412.3 of the Code of Federal Regulations Patient History Date of Service: 05/16/19 Reason for admission: Altered mental status History of Present Illness: Patient is a 74-year-old gentleman who came into the hospital with altered mental status. Patient at [place] and started having a staring spell. He was staring straight ahead and started acting differently. They brought him into the emergency room for further evaluation. In the ER he had a CT of the head which was negative. Patient currently is back to his baseline. He is confused but interacting. At this time no new complaints. Will see how we does over the next 24 hr and possibly discharge home. We also need a UA with microscopy look rule out UTI. Pt will need observation stay. Allergies No Known Allergies Allergy (Verified 05/16/19 20:24) Home Medications: Abh Gel 1 mg TOP Q4H PRN 05/17/19 Acetaminophen [Acetaminophen ER] 2 tab PO Q6H PRN 05/17/19 Acetaminophen [Tylenol] 1 tab PO Q6H PRN 05/17/19 Bisacodyl [Women's Laxative] 2 tab PO DAILY PRN 05/17/19 Cholecalciferol (Vitamin D3) [Vitamin D3] 1,000 unit PO DAILY 05/17/19 OXcarbazepine [Oxcarbazepine] 1 tab PO BID 05/17/19 Pantoprazole Sodium [Protonix] 1 tab PO DAILY 05/17/19 Quetiapine Fumarate [Seroquel] 400 mg PO TID 05/17/19 Sennosides [Senna Laxative] 1 tab PO BID 05/17/19 Valproic Acid Syrup [Depakene Syrup*] 15 ml PO TID 05/17/19 - Past Medical/Surgical History Has patient received pneumonia vaccine in the past: Yes Diabetic: No -: DEMENTIA -: UTI -: THROMBOCYTOPENIA -: VIT D DEFICIENCY -: MOOD DISORDER -: ALCOHOL ABUSE WITH ALCOHOL-INDUCED PSYCHOTIC DISORDER -: BIPOLAR DISORDER -: ALZHEIMER'S DISEASE -: INSOMNIA -: HTN -: COPD -: GERD - Social History Smoking Status: Never smoker Alcohol use: Yes CD- Drugs: No Place of Residence: [facility] Review of Systems 10-point ROS is otherwise unremarkable Physical Examination - Vital Signs Temperature: 97.8 F Blood Pressure: 150/80 Pulse: 80 Respirations: 18 Pulse Ox (%): 97 - Physical Exam General: Alert, In no apparent distress, Oriented x1, Demented HEENT: Atraumatic, Normocephalic Neck: Supple, 2+ carotid pulse no bruit, JVD not distended, No Thyromegaly, No LAD Respiratory: Clear to auscultation bilaterally, Normal air movement Cardiovascular: Regular rate/rhythm, Normal S1 S2, No murmurs Gastrointestinal: Normal bowel sounds, Soft and benign, Non-distended, No tenderness Musculoskeletal: No clubbing, No swelling Neurological: Cranial nerves 3-12 intact, Abnormal gait, Abnormal strength Lymphatics: No axilla or inguinal lymphadenopathy - Studies Laboratory Data (last 24 hrs) 05/16/19 14:30: PT 15.8 H, INR 1.35, APTT 29.4 05/16/19 14:30: WBC 5.6, Hgb 12.7 L, Hct 38.7 L, Plt Count 80 L 05/16/19 14:30: Sodium 142, Potassium 4.3, BUN 25 H, Creatinine 0.89, Glucose 114 H, Total Bilirubin 0.3, AST 9 L, ALT 10 L, Alkaline Phosphatase 64, Lipase 32 L Assessment & Plan - Problems (Diagnosis) (1) Altered mental status Current Visit: Yes Status: Acute (2) Dementia in Alzheimer's disease Current Visit: Yes Status: Acute (3) Petit mal status epilepticus Current Visit: Yes Status: Acute - Plan PLAN: 1. IV hydration 2. Monitor electrolytes 3. Ua with microscopy 4. May need MRI if symptoms worsens or do not improve 5. GI/DVT prophylaxis Discharge Plan: Home Plan to discharge in: 24 Hours - Advance Directives Does patient have a Living Will: No Does patient have a Durable POA for Healthcare: No - Code Status/Comfort Care Code Status Assessed: Yes Code Status: Full Code Critical Care: No Time Spent Managing PTS Care (In Minutes): 45
[2019-05-17] MEDS ORDERED: HYDRALAZINE HCL 20 MG/ML VIAL IV PRN (12:41)
[2019-05-17 12:42] LABS: Urine Appearance CLEAR; Urine Bilirubin NEGATIVE (NEG); Urine Blood NEGATIVE (NEG); Urine Color YELLOW; Urine Glucose NEGATIVE (NEG); Urine Protein NEGATIVE (NEG); Urine Specific Gravity 1.015 (1.005-1.030); Urine pH 7.5 (5.0-7.0)
[2019-05-17 13:03] LABS: Urine Bacteria <20 /HPF (NONE SEEN); Urine Culture Reflex Order NOT NEEDED; Urine RBC <5 /HPF (NONE SEEN)
--- NOTE | 2019-05-17 13:51 | P.SSS ---
Patient History Date of Service: 05/17/19 Reason for admission: Altered mental status History of Present Illness: Patient is a 74-year-old gentleman who came into the hospital with altered mental status. Patient at [place] and started having a staring spell. He was staring straight ahead and started acting differently. They brought him into the emergency room for further evaluation. In the ER he had a CT of the head which was negative. Patient currently is back to his baseline. He is confused but interacting. At this time no new complaints. Will see how we does over the next 24 hr and possibly discharge home. We also need a UA with microscopy look rule out UTI. Pt will need observation stay. Allergies No Known Allergies Allergy (Verified 05/16/19 20:24) Home medications list reviewed: Yes Home Medications: Abh Gel 1 mg TOP Q4H PRN 05/17/19 Acetaminophen [Acetaminophen ER] 2 tab PO Q6H PRN 05/17/19 Acetaminophen [Tylenol] 1 tab PO Q6H PRN 05/17/19 Bisacodyl [Women's Laxative] 2 tab PO DAILY PRN 05/17/19 Cholecalciferol (Vitamin D3) [Vitamin D3] 1,000 unit PO DAILY 05/17/19 OXcarbazepine [Oxcarbazepine] 1 tab PO BID 05/17/19 Pantoprazole Sodium [Protonix] 1 tab PO DAILY 05/17/19 Quetiapine Fumarate [Seroquel] 400 mg PO TID 05/17/19 Sennosides [Senna Laxative] 1 tab PO BID 05/17/19 Valproic Acid Syrup [Depakene Syrup*] 15 ml PO TID 05/17/19 - Past Medical/Surgical History Has patient received pneumonia vaccine in the past: Yes Diabetic: No -: DEMENTIA -: UTI -: THROMBOCYTOPENIA -: VIT D DEFICIENCY -: MOOD DISORDER -: ALCOHOL ABUSE WITH ALCOHOL-INDUCED PSYCHOTIC DISORDER -: BIPOLAR DISORDER -: ALZHEIMER'S DISEASE -: INSOMNIA -: HTN -: COPD -: GERD - Social History Smoking Status: Never smoker Alcohol use: Yes CD- Drugs: No Place of Residence: [facility] Review of Systems 10-point ROS is otherwise unremarkable Physical Examination - Vital Signs Temperature: 97.8 F Blood Pressure: 150/80 Pulse: 80 Respirations: 18 Pulse Ox (%): 97 - Physical Exam General: Alert, In no apparent distress, Oriented x1, Demented (At baseline) HEENT: Atraumatic, PERRLA, Mucous membr. moist/pink, EOMI, Sclerae nonicteric Neck: Supple, 2+ carotid pulse no bruit, No LAD, Without JVD or thyroid abnormality Respiratory: Clear to auscultation bilaterally, Normal air movement Cardiovascular: Regular rate/rhythm, Normal S1 S2 Gastrointestinal: Normal bowel sounds, No tenderness Musculoskeletal: No tenderness Integumentary: No rashes Neurological: Normal gait, Normal speech, Normal strength at 5/5 x4 extr, Normal tone, Normal affect Lymphatics: No axilla or inguinal lymphadenopathy - Studies Laboratory Data (last 24 hrs) 05/16/19 14:30: PT 15.8 H, INR 1.35, APTT 29.4 05/16/19 14:30: WBC 5.6, Hgb 12.7 L, Hct 38.7 L, Plt Count 80 L 05/16/19 14:30: Sodium 142, Potassium 4.3, BUN 25 H, Creatinine 0.89, Glucose 114 H, Total Bilirubin 0.3, AST 9 L, ALT 10 L, Alkaline Phosphatase 64, Lipase 32 L - Diagnosis (Problem(s)) (1) Altered mental status Current Visit: Yes Status: Acute (2) Dementia in Alzheimer's disease Current Visit: Yes Status: Acute Treatment Summary: Patient was admitted for altered mental status. He was monitored overnight, given IV fluids. The UA with microscopy was done with 1 time straight catheterization. There is no evidence of urinary tract infection. Patient's mentation returned to baseline. This was confirmed with [facility] , where patient resides. He otherwise remained hemodynamically stable throughout the stay. He was then discharged back to [facility] in a safe and stable manner. - Disposition Discharge Date: 05/17/19 Disposition: ROUTINE DISCHARGE Patient Discharge Instructions: Please return to the emergency room for worsening symptoms Diet: Regular Activity: Fall precautions Time Spent Managing Pts Care (In Minutes): 45
[2019-05-17] MEDS ORDERED: VALPROIC ACID 250 MG/5 ML OSYR PO SCH (14:00)
[2019-05-17] MEDS ORDERED: QUETIAPINE 100MG TAB PO SCH (14:00)
[2019-05-17] MEDS ORDERED: OXcarbazepine 150 MG TAB PO SCH (21:00)
[2019-05-17] MEDS ORDERED: SENOSIDES 8.6 MG TAB PO SCH (21:00)
[2019-05-18] MEDS ORDERED: PANTOPRAZOLE 40MG TABLET PO SCH (06:30)
[2019-05-18] MEDS ORDERED: VITAMIN D 1000 UNIT TAB PO SCH (09:00)
== END 2019-05-17 17:38 ==
LOC: ER 13:35 → ERHOLD 17:53 → 2ND 19:59
PROVIDERS: ADMIT Family Medicine; ATTEND Hospitalist
DX: R41.82 Altered mental status, unspecified (principal); G30.9 Alzheimer's disease, unspecified; F02.80 Dementia in other diseases classified elsewhere, unspecified severity, without behavioral disturbance, psychotic disturbance, mood disturbance, and anxiety; I10 Essential (primary) hypertension
CPT/HCPCS: 96365; 93005; 87040 ×2; 87088; 85025 ×2; 81001; 80048; 36415; 82140; 83735; 82550; 84100; 85610; 80076; 80164; 83605; 85730; 84484; 82553; 83690; 80053; 84145; 70450; 71045; 94760 ×2; 99285; 96366; J7030 ×4; G0378 ×2; 87086